=== PATIENT | male | born 1965 | race Caucasian/White ===

== ENCOUNTER 2019-04-09 12:29 | Emergency (ER) | payer OTHER ==
[~2019-04-09] VITALS: Ht 185.4 cm; Wt 102.1 kg
[2019-04-09 12:31] VITALS: BP 159/91
[2019-04-09 13:15] LABS: BASOPHILS % (AUTO) 1.2 % (0.0-2.0); EOSINOPHILS % (AUTO) 1.8 % (0.0-3.0); HEMATOCRIT 46.4 % (42.0-52.0); HEMOGLOBIN 15.6 G/DL (14.2-18.0); LYMPHOCYTES % (AUTO) 15.4 % (20.0-45.0); MEAN CORPUSCULAR VOLUME 95 FL (80-99); NEUTROPHILS % (AUTO) 71.5 % (45.0-75.0); PLATELET COUNT 212 K/UL (150-450); RED BLOOD COUNT 4.86 M/UL (4.70-6.10); RED CELL DISTRIBUTION WIDTH 11.3 % (11.6-14.8); WHITE BLOOD COUNT 7.8 K/UL (4.8-10.8)
[2019-04-09 13:23] LABS: ANION GAP 9 mmol/L (5-15); BLOOD UREA NITROGEN 12 mg/dL (7-18); CALCIUM 8.8 MG/DL (8.5-10.1); CARBON DIOXIDE 26 MMOL/L (21-32); CHLORIDE 104 MMOL/L (98-107); CREATININE 1.1 MG/DL (0.55-1.30); POTASSIUM 3.7 MMOL/L (3.5-5.1); SODIUM 139 MMOL/L (136-145)
--- NOTE | 2019-04-09 13:36 | Emergency Room Report ---
History of Present Illness General Chief Complaint: Dizziness Source: Patient (Aravind Lockhart MD) Present Illness HPI Disclaimer: Please note that this report is being documented using DRAGON technology. This can lead to erroneous entry secondary to incorrect interpretation by the dictating instrument. HPI: This a 53-year-old male with a history of hypertension, BPH, with pain worked up for prostate cancer, former steroid abuse, former tobacco abuse presenting for evaluation of chest pain shortness of breath. 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 He states he developed tunnel vision but did not lose consciousness. Was diaphoretic and short of breath however this is now resolved. States he had a exercise and a nuclear stress test within the past 5 years both of which were unremarkable. Denies any unilateral calf swelling, lower extremity edema. No history of PE or DVT in the past. Chest pain is now resolved. He does state that he did not eat dinner last night or breakfast this morning prior to cardio exercise and that while he usually abstain from energy drinks he did have some today. He did note some palpitations during the chest pain. He adds that intermittently he will become short of breath with mild exertion such as going up and down stairs or bending over to tie his shoe. He is feeling much better now. He did take some trazodone last night and early this morning. Otherwise, he denies recent fever , chills, cough, abdominal pain, vomiting, diarrhea or rash. PMH: Hypertension, BPH Allergies: None listed Social Hx: Former smoker, former alcohol, former steroids (Aravind Lockhart MD) Allergies: Coded Allergies: No Known Allergies (Unverified , 04/09/19) Nursing Documentation-PMH Past Medical History: No Stated History (Aravind Lockhart MD) Review of Systems All Other Systems: negative except mentioned in HPI (Aravind Lockhart MD) Physical Exam Vital Signs Date Time Temp Pulse Resp B/P (MAP) Pulse Ox O2 Delivery O2 Flow Rate FiO2 04/09/19 12:31 98.1 78 19 159/91 (113) 97 Room Air General: Awake and alert, no acute distress HEENT: NC/AT. EOMI. Neck: Supple, trachea midline Chest Wall: No tenderness, no deformity Cardiovascular: RRR. S1 and S2 normal. No murmur appreciated Resp: Normal work of breathing. No cough, wheezing or crackles appreciated Abdomen: Abdomen is soft, nondistended. Nontender Skin: Intact. No abrasions, laceration or rash over the exposed skin MSK: Normal tone and bulk. Moving all extremities. No obvious deformity. No unilateral calf swelling. No calf tenderness. Homans sign is negative. Neuro: Awake and alert. Mentating appropriately. (Aravind Lockhart MD) Medical Decision Making ER Course Differential includes but limited to ACS, unstable angina, overexertion, dehydration, excess caffeine intake, PE, pneumonia, pneumothorax, bronchitis, viral syndrome. Start broad work-up including EKG, chest x-ray, labs including d-dimer and peptide. Laboratory Tests Test 04/09/19 12:57 White Blood Count 7.8 K/UL (4.8-10.8) Red Blood Count 4.86 M/UL (4.70-6.10) Hemoglobin 15.6 G/DL (14.2-18.0) Hematocrit 46.4 % (42.0-52.0) Mean Corpuscular Volume 95 FL (80-99) Mean Corpuscular Hemoglobin 32.0 PG (27.0-31.0) H Mean Corpuscular Hemoglobin Concent 33.6 G/DL (32.0-36.0) Red Cell Distribution Width 11.3 % (11.6-14.8) L Platelet Count 212 K/UL (150-450) Mean Platelet Volume 5.9 FL (6.5-10.1) L Neutrophils (%) (Auto) 71.5 % (45.0-75.0) Lymphocytes (%) (Auto) 15.4 % (20.0-45.0) L Monocytes (%) (Auto) 10.0 % (1.0-10.0) Eosinophils (%) (Auto) 1.8 % (0.0-3.0) Basophils (%) (Auto) 1.2 % (0.0-2.0) D-Dimer 0.64 mg/L FEU (0.00-0.49) H Sodium Level 139 MMOL/L (136-145) Potassium Level 3.7 MMOL/L (3.5-5.1) Chloride Level 104 MMOL/L (98-107) Carbon Dioxide Level 26 MMOL/L (21-32) Anion Gap 9 mmol/L (5-15) Blood Urea Nitrogen 12 mg/dL (7-18) Creatinine 1.1 MG/DL (0.55-1.30) Estimate Glomerular Filtration Rate > 60 mL/min (>60) Glucose Level 105 MG/DL (74-106) Calcium Level 8.8 MG/DL (8.5-10.1) Total Bilirubin 0.5 MG/DL (0.2-1.0) Aspartate Amino Transferase (AST) 23 U/L (15-37) Alanine Aminotransferase (ALT) 55 U/L (12-78) Alkaline Phosphatase 38 U/L (46-116) L Total Creatine Kinase 193 U/L (26-308) Creatine Kinase MB 1.9 NG/ML (0.0-3.6) Creatine Kinase MB Relative Index 0.9 Troponin I 0.010 ng/mL (0.000-0.056) Pro-B-Type Natriuretic Peptide 156 pg/mL (0-125) H Total Protein 7.2 G/DL (6.4-8.2) Albumin 3.8 G/DL (3.4-5.0) Globulin 3.4 g/dL Albumin/Globulin Ratio 1.1 (1.0-2.7) (Aravind Lockhart MD) ER Course This patient was turned over to me by Dr. Hui. Please see full H&P by Dr. Lockhart. This patient was awaiting results of CTA of the chest to rule out PE. CT shows no evidence of PE. There were some incidental atelectatic findings. There was also a liver lesion incidentally identified. Patient does have a history of heavy alcohol use. I instructed the patient to follow-up with the primary care physician for further evaluation of the liver lesion that would likely need a hepatic CT versus MRI. There was no emergency medical condition identified. I did print the report of the CTs that the patient can follow-up with her primary care physician for further monitoring of the incidental findings as indicated. (Kristy Gomez DO) EKG Diagnostic Results EKG Time: 12:46 Rate: normal Rhythm: NSR Other Impression Sinus rhythm. Left axis deviation. No acute ischemic changes. No ST changes. Normal intervals. (Aravind Lockhart MD) Rhythm Strip Diag. Results Rhythm Strip Time: 12:46 Rate: 60s Rhythm: NSR (Aravind Lockhart MD) Chest X-Ray Diagnostic Results Chest X-Ray Diagnostic Results : # of Views/Limited/Complete: 1 View Indication: Chest Pain EP Interpretation: Yes PA Xray: Interpretation reviewed Interpretation: no consolidation, no effusion, no pneumothorax Impression: No acute disease Electronically Signed by: Electronically signed by Dr. Aravind Lockhart (Aravind Lockhart MD) CT/MRI/US Diagnostic Results CT/MRI/US Diagnostic Results : Imaging Test Ordered: CTA Chest Impression Impression: No evidence of acute pulmonary embolus or other acute thoracic vascular pathology Bilateral basilar atelectatic changes and possible consolidation Evidence of old granulomatous disease on the left 5 mm slightly irregular opacity in the right upper lobe. No further follow-up necessary if there is no significant smoking history or other risk factors for lung carcinoma. Consider short interval: Follow-up if there are significant risk factors 2 cm hypoattenuating right lobe liver lesion. This is nonspecific in appearance. Consider further evaluation with hepatic CT or MRI. Evidence for granulomatous disease within the liver Incidental finding of degenerative spondylosis (Kristy Gomez DO) Reevaluation Time: 14:34 Last Vital Signs Date Time Temp Pulse Resp B/P (MAP) Pulse Ox O2 Delivery O2 Flow Rate FiO2 04/09/19 12:31 78 19 Room Air 04/09/19 12:31 98.1 159/91 97 Status: unchanged Reevaluation Impression Labs have returned largely unremarkable. Troponin is negative. D-dimer did return positive just above the upper lip and are normal at 0.6. He will have a CTA of the chest to rule out pulmonary embolism. He remains asymptomatic with stable vital signs. Patient was signed out to the oncoming physician pending CTA. (Aravind Lockhart MD) Signed Out To: Dr. Ramos (Aravind Lockhart MD) Aravind Lockhart MD Apr 09, 2019 13:36 Kristy Gomez DO Apr 09, 2019 16:08
[2019-04-09 13:37] LABS: ALANINE AMINOTRANSFERASE 55 U/L (12-78); ALBUMIN 3.8 G/DL (3.4-5.0); ALBUMIN/GLOBULIN RATIO 1.1 (1.0-2.7); ALKALINE PHOSPHATASE 38 U/L (46-116); ASPARTATE AMINO TRANSFERASE 23 U/L (15-37); BILIRUBIN,TOTAL 0.5 MG/DL (0.2-1.0); CKMB 1.9 NG/ML (0.0-3.6); CREATINE KINASE 193 U/L (26-308)
[2019-04-09] MEDS ORDERED: Isovue-370 150ml vial INJ PRN (14:30)
--- NOTE | 2019-04-09 15:11 | Diagnostic Imaging Report ---
Indication: Chest pain Technique: One view of the chest Comparison: none Findings: Lungs and pleural spaces are clear. Heart size is normal. Impression: No acute process
--- NOTE | 2019-04-09 15:54 | Diagnostic Imaging Report ---
ndication: 53-year-old male with chest pain and shortness of breath Technique: IV administration nonionic contrast. Spiral acquisitions obtained from the lung bases to the lung apices. Multiplanar and 3-D reconstructions were generated. Total dose length product 1023.23 mGycm. CTDIvol(s) 26.29 mGy. Dose reduction achieved using automated exposure control Comparison: none Findings: There is a slight degree of image degradation at the lung bases due to motion artifact. Pulmonary arteries are fairly well opacified. No intraluminal filling defects or other findings to suggest acute pulmonary embolus demonstrated. Normal caliber pulmonary arteries. No right ventricular dilatation. No evidence of thoracic aortic aneurysm or dissection. The lungs demonstrate linear and patchy opacities at both lung bases, predominantly posteriorly. The left lower lobe demonstrates some parenchymal calcifications at the posterior tip. The upper lobes and right middle lobe are largely clear. There is an irregular 5 mm density in the right upper lobe, images 21 and 22 of series 8. This does not appear particularly masslike. No effusions. The heart is normal in size. No pericardial effusion. No mediastinal or hilar mass or adenopathy. The included portion of the thyroid is unremarkable. No axillary or chest wall mass or adenopathy. The included upper abdominal anatomy demonstrates a few scattered calcifications within the liver. There is a subtle hypoattenuating lesion in segment 8 of the liver, images 94 through 97 this measures approximately 2 cm in diameter. There are mild degenerative spondylosis changes noted. Impression: No evidence of acute pulmonary embolus or other acute thoracic vascular pathology Bilateral basilar atelectatic changes and possible consolidation Evidence of old granulomatous disease on the left 5 mm slightly irregular opacity in the right upper lobe. No further follow-up necessary if there is no significant smoking history or other risk factors for lung carcinoma. Consider short interval: Follow-up if there are significant risk factors 2 cm hypoattenuating right lobe liver lesion. This is nonspecific in appearance. Consider further evaluation with hepatic CT or MRI. Evidence for granulomatous disease within the liver Incidental finding of degenerative spondylosis The CT scanner at [facility] is accredited by the [employer] [place] and the scans are performed using protocols designed to limit radiation exposure to as low as reasonably achievable to attain images of sufficient resolution adequate for diagnostic evaluation.
[2019-04-09 16:00] VITALS: BP 132/84
[2019-04-09 16:25] VITALS: BP 132/84
--- NOTE | 2019-04-13 11:20 | Cardiology Report ---
APPROVED REPORT EKG Measurement Heart [id number] Normal sinus rhythm Left axis deviation Possible Anterior infarct, age undetermined Abnormal ECG
== END 2019-04-09 16:25 | disposition home or self-care (01) ==
LOC: EMR 13:05
DX: R07.9 Chest pain, unspecified (principal); I10 Essential (primary) hypertension; N40.0 Benign prostatic hyperplasia without lower urinary tract symptoms; Z87.891 Personal history of nicotine dependence; R55 Syncope and collapse; K76.9 Liver disease, unspecified; D71 Functional disorders of polymorphonuclear neutrophils; M47.819 Spondylosis without myelopathy or radiculopathy, site unspecified
CPT/HCPCS: 36415; 71045; 71275; 80053; 82550; 82553; 83880; 84484; 85025; 85379; 93005; 99284; Q9967